=== PATIENT | female | born 1985 ===

== ENCOUNTER 2017-05-04 14:28 | Emergency (ER) | payer MEDICAID, OTHER ==
[~2017-05-04] VITALS: Ht 177.8 cm; Wt 84.1 kg
[~2017-05-04 14:28] MED LIST: HYDR-4003 PO; PREN-99 PO
[2017-05-04 14:36] VITALS: BP 137/91; PULSE 89; RESP 18; O2SAT 99
--- NOTE | 2017-05-04 15:08 | ED.REPORT ---
HPI-Headache Date of Service May 04, 2017 ED Provider: Parish Muñoz MD Patient is a 31 year old female with a hx of migraines without aura who presents to the ED via EMS complaining of a severe headache onset a few days ago. She localizes her pain to the top of her head. Associated symptoms include subjective fevers, nasal congestion, and "bumps" on her neck. Patient does not recall a mechanism of injury. She denies nausea, vomiting, diaphoresis, numbness , localized weakness, bowel or bladder incontinence, neck stiffness, vision changes, or any other symptoms. She has tried Advil, Percocet, and Tylenol without relief. Her last dose of Ibuprofen was at 0900 this morning. She has not had a period in 4 years and does not know why. Patient does not have a PCP. Nursing Notes Stated Complaint: HEADACHE Chief Complaint: Headache Nursing Notes Reviewed: Yes Allergies: Coded Allergies: No Known Allergies (Verified Allergy, Unknown, 09/15/15) Scheduled Pnv95/Ferrous Fumarate/FA ( Multivitamins Tablet) 1 Each Tablet 1 EACH PO DAILY Scheduled PRN Hydrocodone-Acetaminophen 5-325 mg (Hydrocodone-Acetaminophen 5-325 mg) 1 Each Tablet 1 TABLET PO Q4H PRN PRN For Pain General Time Seen by MD: 15:06 Chief Complaint Headache Hx Obtained From: Patient Arrived By: Ambulance Sudden in Onset?: Yes Onset Occurred: 3 days ago Symptom Duration: Since onset Quality: Painful Radiation: : Does not radiate Related History: Reports: Headache, migraine hx Recent Healthcare: No recent doctor visit Similar Sx Previous: Yes Risk-Headache )( SAH Risk Stratification No Anticoagulation therapy, No Hypertension, No Polycystic kidney disease RF Statements: Risk factors reviewed )( IC Mass Risk Stratification No Malignancy RF Statements: Risk factors reviewed Past Medical History Past Medical History Notes: PCP: none Past Medical History Migraines Past Surgical History Reports: Tonsillectomy Smoking History Current Every Day Smoker Social History Alcohol Use: In recovery Drug Use: In recovery Other Social History: Local resident Ambulatory Status Independent Review of Systems Review of Systems Note: "bumps" on neck Constitutional: Reports: Fever Ears / Nose / Throat: Reports: Nasal congestion GI: Denies: Nausea, Vomiting Musculoskeletal: Denies: Neck pain Skin: Denies Diaphoresis Neurologic: Reports: Headache, Denies: Bladder dysfunction, Bowel dysfunction, Focal weakness, Numbness, Vision change Complete sys rev & neg: except as marked. Female: Denies: Incontinence Physical Exam Initial Vital Signs Vital Signs (First) Date Time Temp Pulse Resp B/P Pulse Ox O2 Delivery O2 Flow Rate FiO2 05/04/17 14:36 37.2 89 18 137/91 99 Room Air Initial VS: Reviewed, Vital signs abnormal Respiratory: Breath sounds normal, Clear to auscultation, No respiratory distress Cardiovascular: Regular rate & rhythm, Heart sounds normal, Intact distal pulses Skin: Warm, Dry Psychiatric: Mood/affect normal, Behavior normal, Normal thought content General/Constitutional: Awake, Alert Head / Eyes: Atraumatic, Normocephalic, PERRL, EOMI Neck: Atraumatic, Supple, No meningismus, Full range of motion Mild cervical adenopathy present Neurologic: Oriented X3, Speech NL ENT: Airway patent, Mucous membranes moist, Pharynx NL Mild nasal congestion Interpretation & Diagnostics Lab Results Interpretation Result Diagram: 05/04/17 1444 Test 05/04/17 14:44 White Blood Count 6.3th/mm3 (3.8-10.1) Red Blood Count 5.43mil/mm3 (3.90-5.20) Hemoglobin 15.5g/dL (12.0-15.6) Hematocrit 44.6% (35.0-46.0) Mean Corpuscular Volume 82.1fL (81-100) Mean Corpuscular Hemoglobin 28.5pg (27.0-35.0) Mean Corpuscular Hemoglobin Concent 34.8% (32.0-37.0) Red Cell Distribution Width 12.4% (12.3-15.4) Platelet Count 196bil/L (150-400) Neutrophils (%) (Auto) 57.5% (40-74) Lymphocytes (%) (Auto) 32.8% (14-46) Monocytes (%) (Auto) 7.5% (4-12) Eosinophils (%) (Auto) 1.7% (0-5) Basophils (%) (Auto) 0.3% (0-3) Hold Purple Top Tube Received (Received) Hold Blue Top Tube Received (Received) Hold Warne Top Tube Received (Received) CT Head Interpretation IMPRESSION: No acute intracranial findings. Dictated by: Dimple Rashid M.D. on 05/04/2017 at 16:16 Approved by: Dimple Rashid M.D. on 05/04/2017 at 16:18 Study: Head CT no contrast Interpretation / Wet Read by: Interpret - Radiologist Re-Eval/Medical Decision Re-Evaluation/Progress : Time of Eval: 17:52 Re-Evaluation/Progress Note: Rechecked pt who is feeling much better. Discussed plan for discharge. Patient understands and agrees with plan. All questions addressed at this time. Counseled Regarding: Diagnosis, Lab results, Need for follow-up, When/why to return to ED Discharge & Departure Impression: Primary Impression: Headache Headache type: unspecified Headache chronicity pattern: acute headache Intractability: not intractable Qualified Code: R51 - Headache Disposition: Home Discharge Condition All VS Reviewed: Yes Condition: Improved Patient Instructions: Acute Headache (ED) Additional Instructions: We did not find a serious cause for headache today in the emergency department. Treatment with an IV medication similar to ibuprofen and a nausea medication was helpful. Rest tonight in a dark room. Use ibuprofen 600 mg every 6 hours as needed if headache returns, best to take this with food. Return emergency Department for severe headache with uncontrolled vomiting or fevers. Follow up with primary care at the [facility] next week Referrals: NOPCP (PCP) Madi Attestation Portions of this note were transcribed by Timi Lee. I, Dr. Muñoz personally performed the history, physical exam and medical decision-making; I reviewed and confirmed the accuracy of the information in the transcribed note. Signed by: Madi Lyman, 05/04/17 Parish Muñoz MD May 04, 2017 15:08 TIMI LEE May 04, 2017 15:24
[2017-05-04] MEDS ORDERED: ProchlorPERazine 5 mg/mL 2 mL Inj IVPUSH ONE (15:25)
[2017-05-04 15:33] LABS: BASOPHILS % (AUTO) 0.3 % (0-3); EOSINOPHILS % (AUTO) 1.7 % (0-5); MONOCYTES % (AUTO) 7.5 % (4-12); Mean Corpuscular Hemoglobin 28.5 pg (27.0-35.0); Mean Corpuscular Volume 82.1 fL (81-100); NEUTROPHILS % (AUTO) 57.5 % (40-74); Platelet Count 196 bil/L (150-400)
--- NOTE | 2017-05-04 16:19 | DRSVH ---
PROCEDURE: CT BRAIN WITHOUT CONTRAST ([id number]) INDICATIONS: headache TECHNIQUE: Noncontrast 4.5 mm thick angled axial sections acquired from the foramen magnum to the vertex, with c oronal reformats. COMPARISON: None. FINDINGS: Image quality: Excellent. CSF spaces: Basal cisterns are patent. No extra-axial fluid collections. Ventricles are normal in size and shape. Brain: No midline shift. No intracranial masses or hemorrhage. Stewart-white matter interface is norm al. Skull and face: Calvarium and visualized facial bones are intact, without suspicious lesions. Sinuses: Visualized sinuses and mastoids are clear. IMPRESSION: No acute intracranial findings. Dictated by: Dimple Rashid M.D. on 05/04/2017 at 16:16 Approved by: Dimple Rashid M.D. on 05/04/2017 at 16:18
[2017-05-04] MEDS ORDERED: 0.9% Sodium Chloride 1,000 ML IV ONE (17:55)
[2017-05-04] MEDS ORDERED: Dexamethasone 4 mg/mL Inj IVPUSH ONE (17:55)
[2017-05-04 18:32] VITALS: BP 122/83; PULSE 64; O2SAT 99
== END 2017-05-04 18:34 | disposition home or self-care (01) ==
LOC: SED 14:28
DX: R51 Headache (principal); F17.200 Nicotine dependence, unspecified, uncomplicated
CPT/HCPCS: 36415; 70450; 85025; 96361; 96374; 96375; 99284; J0780; J1100; J1200; J1885; J7030